=== PATIENT | female | born 1995 | race Caucasian/White ===

== ENCOUNTER → 2019-09-28 11:12 | Outpatient (CLI) | payer OTHER, SELFPAY ==
[2019-09-28 14:13] LABS: Coronavirus 19 IgG Antibody Negative (Negative); Coronavirus 19 IgM Antibody Negative (Negative)
== END ==
PROVIDERS: Visit Provider Urology
DX: Z01.818 Encounter for other preprocedural examination (principal); R30.0 Dysuria
CPT/HCPCS: 36415; 86328

== ENCOUNTER 2019-10-01 07:30 | Day surgery (SDC) | payer OTHER, SELFPAY ==
--- NOTE | 2019-09-27 09:41 | SUR.PREOP ---
09/27/2019 @ 0945--PHONE CALL MADE TO PATIENT. PATIENT UNDERSTANDS THAT LAB WORK AND COVID TESTING NEEDS TO BE COMPLETED @ 1100 ON 09/28/2019. PATIENT UNDERSTANDS IF LAB WORK AND COVID-19 TESTS ARE NOT COMPLETED BY 12PM ON THAT DATE, THE SURGERY SCHEDULED WILL BE CANCELLED AND RESCHEDULED FOR ANOTHER TIME.
[2019-09-28 12:32] VITALS: BMI 32.9
[2019-10-01 07:49] VITALS: BP 155/87; PULSE 119; RESP 18; TEMP 37.1; O2SAT 99
[2019-10-01 09:15] VITALS: BP 120/70; PULSE 95; RESP 20; TEMP 37.1; O2SAT 100
--- NOTE | 2019-10-01 12:34 | [facility].OPNOTE ---
Date of procedure: 10/01/19 Pre-op Diagnosis:: Dysuria Post-op Diagnosis:: Dysuria/mild urethral stenosis Procedure performed:: Cystoscopy with urethral dilation and vaginal examination Surgeon:: Jerry Vicente MD Anesthesia: local Estimated blood loss (mL): 0 Clinical Note:: 23-year-old white female with persistent dysuria, frequency and nocturia Operative findings:: Vaginal examination was normal, cystoscopy was normal, there was some slight resistance to passage of the initial 20 [place] sound Operative note:: Patient taken to the operating suite on the stretcher after informed consent. She was placed in the frog-leg position and prepped and draped in the standard surgical fashion and 2% lidocaine placed into the urethra. After 5 minutes the flexible cystoscope introduced into the urethral meatus. Passed into the bladder without difficulty. The bladder was examined in a systematic fashion. There is no evidence of mucosal normalities, stones, diverticula or trabeculation. Ureteral orifices in their normal anatomic position and clear reflux of urine noted. The bladder neck and urethra were otherwise normal. The urethra was then dilated with a 20, 22 and 24 [place] female sounds. There was some resistance to placement of the initial 20 [place] sound. Patient tolerated procedure well. Vaginal examination revealed no evidence of any urethral abnormalities or discharge upon stripping the urethra. Patient reassured no suspicious findings noted. She is to continue the Uribel and we discussed that dilation may improve her symptoms as well. We will see her back in 1 month in follow-up. Condition: stable Disposition: same day Specimens:: None Complications:: None
== END 2019-10-01 09:25 | disposition home or self-care (01) ==
LOC: OUTP 07:31
PROVIDERS: PCP Emergency Medicine; Visit Provider Urology
PROC: (CPT 52000; principal; 2019-10-01 08:30)
DX: N35.92 Unspecified urethral stricture, female; R30.0 Dysuria; Z79.899 Other long term (current) drug therapy; Z88.0 Allergy status to penicillin; Z88.1 Allergy status to other antibiotic agents; Z72.0 Tobacco use; Z82.49 Family history of ischemic heart disease and other diseases of the circulatory system; Z83.438 Family history of other disorder of lipoprotein metabolism and other lipidemia
CPT/HCPCS: 52000